=== PATIENT | male | born 2005 | race Caucasian/White ===

== ENCOUNTER 2024-07-26 19:59 | Emergency (ER) | payer MEDICAID, SELFPAY ==
[2024-07-26 20:22] VITALS: BP 127/70; PULSE 93; RESP 20; TEMP 36.9; O2SAT 98; BMI 36.9
--- NOTE | 2024-07-26 20:22 | ED_ITS ---
HPI - Skin/Abscess/Foreign Bdy General Chief complaint: General Medical Stated complaint: cyst on lower back Time Seen by Provider: 07/26/24 23:54 Source: patient Limitations: no limitations History of Present Illness ED Provider: Yolanda Kruse PA-C HPI narrative: 19-year-old male presents with infected pilonidal cyst times 3-4 days. Patient states he was seen at [facility], no intervention performed per his report, since the cyst has increased in size. Active purulent drainage from the site with a foul smell. Denies fever. Related Data Previous Rx's ?Medication ?Instructions ?Recorded doxycycline hyclate 100 mg capsule 100 mg PO BID #19 c aps 07/27/24 oxycodone 5 mg tablet 5 mg PO Q8H PRN pain #7 tabs 07/27/24 Allergies Allergy/AdvReac Type Severity Reaction Status Date / Time shellfish derived (shellfish) AdvReac Anaphylaxis Verified 07/26/24 20:25 Review of Systems Review of Systems: Yes all other systems are reviewed and are negative Constitutional: Constitutional: Denies fatigue and Denies fever(s) Endocrine: Endocrine: Denies fatigue [facility] Past Medical History Attestation statement: The following information was validated with the patient. Social History Social History Smoked in Last 30 Days: No Use of substances other than those prescribed or required for medical reasons: Yes Substance Use Type: Marijuana Substance Use Frequency: Occasionally Advance Directives: No Advance Directives Information Provided: Yes Do you have a plan to hurt others: No Plan Physical Exam Vital Signs: Vital Signs: Last Vital Signs Temp 98.2 F 07/27/24 03:14 Pulse 78 07/27/24 03:14 Resp 14 07/27/24 03:14 BP 100/44 L 07/27/24 03:14 Pulse Ox 97 07/27/24 03:14 O2 Del Method Room Air 07/27/24 03:14 BMI result Body Mass Index 36.9 Const: Other: Alert well-appearing Orientation/consciousness: patient oriented x3 Resp: Effort & Inspection: normal respiratory effort Cardio: Other: Normal peripheral perfusion Skin: Other: Large abscess superior to the buttock crease, it is indurated erythematous, no active drainage Neuro: General: patient oriented x3, gait normal, no focal motor deficits and CN's II-XI intact bilaterally Psych: Other: Cooperative Course Course Course Narrative: 07/26/242021 RUBINA Pratt This is a Rapid Medical Examination (RME) performed by Lyn Tabares PA-C in triage. Full HPI, ROS, assessment and treatment plan per primary provider in the Main ED. Hx: 19 yo M here for eval of cyst to lower back. hx similar requiring I&D. reports the area began draining foul smelling discharge today. PE/vitals: noted pilonidal to gluteal cleft draining foul smelling discharge Plan: I&D Medications Administered Discontinued Medications Generic Name Dose Route Start Last Admin Trade Name Freq PRN Reason Stop Dose Admin Doxycycline Monohydrate 100 mg 07/27/24 02:21 07/27/24 02:49 Doxycycline Monohydrate 100 Mg Capsule PO 07/27/24 02:22 100 mg ONCE ONE Administration Ketorolac Tromethamine 15 mg 07/27/24 00:45 07/27/24 00:54 Ketorolac Tromethamine 15 Mg/Ml Vial IM 07/27/24 00:46 15 mg ONCE ONE Administration Lidocaine/Epinephrine 20 ml 07/27/24 00:28 07/27/24 00:54 Lidocaine Hcl 1%/Epi 1:100,000 20 Ml Vial INFILTRATI 07/27/24 00:29 20 ml ONCE ONE Administration Midazolam HCl 2 mg 07/27/24 00:45 07/27/24 00:53 Midazolam Hcl 2 Mg/2 Ml Vial IM 07/27/24 00:46 2 mg ONCE ONE Administration Oxycodone HCl 5 mg 07/27/24 02:21 07/27/24 02:50 Oxycodone Hcl Immed Release 5 Mg Tablet PO 07/27/24 02:22 5 mg ONCE ONE Administration Medical Decision Making Medical Decision Making MDM Narrative: 19-year-old male presents with infected pilonidal cyst times 3-4 days. Patient states he was seen at [facility], no intervention performed per his report, since the cyst has increased in size. Active purulent drainage from the site with a foul smell. Denies fever. No chronic issues History: Per patient I have considered the following differential diagnoses: Pilonidal cyst, cellulitis, purulent cellulitis, abscess Plan: The abscess will require simple I and D we will premedicate and send with antibiotics Procedures Abscess I/D Site: other (Pilonidal) Local Anesthetic: lidocaine 1% and with epi Amount of anesthesia used (mL): 5 Technique: needle aspiration and incised with blade Amount of fluid expressed (mL): 50 Sent for culture/gram staining?: No Irrigation: Yes Packing used?: iodoform Discharge Plan Discharge Clinical Impression: Pilonidal abscess Patient Disposition: Home, Self-Care Instructions: Pilonidal Cyst (ED), Abscess (ED), Sitz Bath (DC) Additional Instructions: You had a pilonidal abscess that was drained. See home care instructions. The packing can be removed in 2 days. I would door glass installer his shower with a hot water running over the site, and quickly removed the packing. Take the doxycycline as directed. Take the oxycodone as needed. To note this medication can be constipating, use [id number] Colace which is a stool softener. Follow up with your primary care provider as needed. Prescriptions: New doxycycline hyclate 100 mg capsule 100 mg PO BID Qty: 19 0RF oxycodone 5 mg tablet 5 mg PO Q8H PRN (Reason: pain) Qty: 7 0RF Rx Instructions: Partial Fill upon patient request. Stand Alone Forms: Work/School Release Interventions: ED Discharge Assessment Last Done: 07/27/24 03:14 Discharge Date/Time: 07/27/24 03:15 Print Language: Zimbabwean
[2024-07-26 22:42] VITALS: BP 100/79; PULSE 88; RESP 16; TEMP 37.1; O2SAT 97
[2024-07-27] MEDS: Midazolam HCl 2 MG/2 ML VIAL IM (00:53)
[2024-07-27] MEDS: Ketorolac Tromethamine 15 MG/ML VIAL IM (00:54)
[2024-07-27] MEDS: Lidocaine HCl 1%/Epi 1:100,000 20 ML VIAL INFILTRATI (00:54)
[2024-07-27] MEDS: Doxycycline Monohydrate 100 MG CAPSULE PO (02:49)
[2024-07-27] MEDS: oxyCODONE HCl Immed Release 5 MG TABLET PO (02:50)
--- NOTE | 2024-07-27 03:04 | PC.NURSE ---
report given to MINERVA Gustafson
[2024-07-27 03:10] VITALS: BP 100/44; PULSE 78; RESP 14; TEMP 36.8; O2SAT 97
--- NOTE | 2024-07-27 03:13 | PC.NURSE ---
Reviewed discharge instructions with pt. pt verbalized understanding, no sign of distress upon discharge. Pt has a steady gait.
[2024-07-27 03:14] VITALS: BP 100/44; PULSE 78; RESP 14; TEMP 36.8; O2SAT 97
== END 2024-07-27 03:15 | disposition home or self-care (01) ==
PROVIDERS: Emergency Provider Emergency Medicine
DX: L05.01 Pilonidal cyst with abscess (principal)
CPT/HCPCS: 10060; 11770; 96372; 99284; J1885; J2004; J2250

== ENCOUNTER 2025-01-24 16:45 | Emergency (ER) | payer OTHER, SELFPAY ==
--- NOTE | ~2025-01-24 | XR_ITS ---
CLINICAL HISTORY: COughing. Pneumonia 1 view chest x-ray Comparison: None provided Findings: No consolidation or pleural effusion. Heart size is normal. No acute fracture. IMPRESSION: 1. No acute findings. This document has been electronically signed by: Bhumika Alfredo MD on 01/24/2025 18:50:40
--- NOTE | 2025-01-24 16:46 | ECG_ITS ---
Test Reason : CHEST PAIN Blood Pressure : */* mmHG Vent. Rate : 128 BPM Atrial Rate : 128 BPM P-R Int : 90 ms QRS Dur : 114 ms QT Int : 318 ms P-R-T Axes : 55 -32 114 degrees QTcB Int : 464 ms Sinus tachycardia with short NH Left axis deviation [id number] Abnormal ECG No previous ECGs available Referred By: Elliot Canales Electronically Signed By: GUILHERME LEWIS
--- NOTE | 2025-01-24 17:06 | MHC.EDTECH ---
This pct documented on wrong patient for ekg the time taken was 17:02
[2025-01-24 17:39] VITALS: BP 143/71; PULSE 130; RESP 22; TEMP 37.8; O2SAT 96; BMI 38.8
--- NOTE | 2025-01-24 17:47 | ED_ITS ---
HPI - General Adult General Chief complaint: Nausea/Vomiting/Diarrhea Stated complaint: CP , HEADACHE , V/D/N Time Seen by Provider: 01/24/25 20:15 Source: patient Limitations: no limitations History of Present Illness ED Provider: Yolanda Kruse PA-C HPI narrative: 19-year-old male with a history of asthma presents with cough and cold symptoms x3 weeks. Associated nausea, chest pain, sore throat, nasal congestion with the headaches. Denies fever. Related Data Previous Rx's ?Medication ?Instructions ?Recorded doxycycline hyclate 100 mg capsule 100 mg PO BID #19 c aps 07/27/24 oxycodone 5 mg tablet 5 mg PO Q8H PRN pain #7 tabs 07/27/24 albuterol sulfate 90 mcg/actuation 2 puff inhalation Q 4-6H PRN 01/24/25 aerosol inhaler (Ventolin HFA) shortness of breath or wheezing #8.5 grams azithromycin 250 mg tablet 250 mg PO DAILY 4 days #4 t abs 01/24/25 prednisone 20 mg tablet 40 mg (2 x 20 mg) PO DAILY # 8 tabs 01/24/25 Allergies Allergy/AdvReac Type Severity Reaction Status Date / Time shellfish derived (shellfish) AdvReac Anaphylaxis Verified 01/24/25 17:44 Review of Systems 2 Review of Systems: Yes all other systems are reviewed and are negative Constitutional: Constitutional: Reports fatigue, Denies fever(s) and Reports headache(s) ENT: Reports headache(s), Reports nasal congestion and Reports sore throat Cardiovascular: Cardiovascular: Denies chest pain and Denies dyspnea Respiratory: Respiratory: Reports cough, Denies dyspnea and Reports wheezing Neurologic: Reports headache(s) Endocrine: Endocrine: Reports fatigue Allergic/Immunologic: Allergic/Immunologic: Reports wheezing PMFSH Past Medical History Attestation statement: The following information was validated with the patient. Social History Social History Substance Use Type: Marijuana Advance Directives: No Advance Directives Information Provided: Yes Do you have a plan to hurt others: No Plan Physical Exam ED Vital Signs: Vital Signs - 24 hr 01/24/25 17:39 01/24/25 20:13 01/24/25 20:43 Temperature 100.1 F 98.3 F Pulse Rate 130 H 110 H 76 Respiratory Rate 22 H 20 19 Blood Pressure 143/71 H 128/77 Pulse Oximetry 96 95 Oxygen Delivery Method Room Air Room Air 01/24/25 21:49 Temperature 0 F L Pulse Rate 76 Respiratory Rate 19 Blood Pressure 00/00 L Pulse Oximetry 98 Oxygen Delivery Method BMI result Body Mass Index 38.8 Const Other: Alert Orientation/consciousness: patient oriented x3 HENMT Other: Oropharynx is erythematous without exudate, uvula midline, tonsils mildly edematous, no sublingual fluctuance no swelling inferior to the jawline Resp Other: Expiratory wheezes noted posterior kay Cardio Other: Normal peripheral perfusion Skin Other: Warm dry no rash Neuro General: patient oriented x3, gait normal, no focal motor deficits and CN's II- XI intact bilaterally Psych Other: Cooperative Course Course Course Narrative: RME: 19 year male presents to ED for headache, chest pain, nausea, vomiting, coughing diarrhea for the past 3 weeks. Patient is tachycardic. Labs ordered Medications Administered Discontinued Medications Generic Name Dose Route Start Last Admin Trade Name Freq PRN Reason Stop Dose Admin Azithromycin 500 mg 01/24/25 21:36 01/24/25 21:44 Azithromycin 500 Mg Tablet PO 01/24/25 21:37 500 mg ONCE ONE Administration Albuterol Sulfate 5 mg/ 0 mg 01/24/25 20:35 01/24/25 20:43 Albuterol/Ipratropium 3 ml INHALE 01/24/25 20:36 7.5 each ONCE ONE Administration Ibuprofen 800 mg 01/24/25 17:46 01/24/25 17:48 Ibuprofen 800 Mg Tablet PO 01/24/25 17:47 800 mg ONCE ONE Administration Ketorolac Tromethamine 15 mg 01/24/25 21:23 01/24/25 21:35 Ketorolac Tromethamine 15 Mg/Ml Vial IM 01/24/25 21:24 15 mg ONCE ONE Administration Ondansetron HCl 4 mg 01/24/25 17:48 01/24/25 17:50 Ondansetron Odt 4 Mg Tab.Rapdis TRANSLINGU 01/24/25 17:49 4 mg ONCE ONE Administration Prednisone 40 mg 01/24/25 20:22 01/24/25 20:37 Prednisone 20 Mg Tablet PO 01/24/25 20:23 40 mg ONCE ONE Administration Medical Decision Making Medical Decision Making [facility] Narrative: 19-year-old male with a history of asthma presents with cough and cold symptoms x3 weeks. Associated nausea, chest pain, sore throat, nasal congestion with the headaches. Denies fever. Problem: Asthma History: Per patient I have considered the following differential diagnoses: Asthma exacerbation, bronchitis, pneumonia, viral syndrome , strep pharyngitis, SECURITIES COUNSELOR, RPA Plan: Screening labs including strep screen ordered from triage, and a chest x- ray. The patient is having viral syndrome, trachea in asthma exacerbation. Ordering an updraft, giving steroid. To note there was no exam findings consistent with a RPA or SECURITIES COUNSELOR. The patient smokes marijuana, we will also send with a Z-Toro. I have independently reviewed the following tests: Labs: No leukocytosis, not anemic, no electrolyte abnormality, troponin less than 2.7, viral panel negative, strep screen negative EKG: Sinus tachycardia, rate of 128, concerned for LVH R in aVL phenomenon, no active ischemic changes, QTC 464 Chest x-ray:indings: No consolidation or pleural effusion. Heart size is normal. No acute fracture. IMPRESSION: 1. No acute findings. Differential Diagnosis Differential Diagnoses: The differential diagnosis associated with the presentation includes See [facility] Admission/Observation Consideration of admission/observation: Escalation of care including admission/observation considered Not applicable Lab Data [facility] Lab Attestation statement: I reviewed the patient's lab results. 01/24/25 17:58 01/24/25 17:58 Labs: Lab Results 01/24/25 01/24/25 Range/Units 17:57 17:58 WBC 7.3 (4.8-10.8) X10*3/uL RBC 5.48 (4.60-5.80) X10*6/uL Hgb 16.5 (14.0-18.0) g/dl Hct 45.9 (42.0-52.0) % MCV 83.8 (80.0-98.0) fL MCH 30.1 (27.0-33.0) pg MCHC 35.9 (31.0-36.0) g/dl RDW 12.7 (11.0-16.0) % Plt Count 216 (160-400) X10*3/uL MPV 10.3 (9.4-12.4) fL Immature Gran % (Auto) 0.3 (0.0-0.4) % Neut % (Auto) 73.7 H (45-73) % Lymph % (Auto) 14.1 L (20-40) % [place] % (Auto) 10.9 (2-11) % Eos % (Auto) 0.3 (0-4) % Baso % (Auto) 0.7 (0-2) % Lymph # (Auto) 1.0 L (1.2-4.9) X10*3/uL [place] # (Auto) 0.8 (0.1-1.2) X10*3/uL Eos # (Auto) 0.0 (0.0-0.4) X10*3/uL Baso # (Auto) 0.1 (0.0-0.2) X10*3/uL Abs Immat Gran (auto) 0.02 (0.00-0.03) X10*3/uL Absolute Neuts (auto) 5.4 (2.0-8.3) x10*3/uL Absolute Nucleated RBC 0.000 (0.0-0.012) X10*3/uL Nucleated RBC % (auto) 0.0 (0.0-0.2) /100WBC Sodium 137 (135-145) mmol/L Potassium 3.8 (3.3-5.1) mmol/L Chloride 104 (96-108) mmol/L Carbon Dioxide 23 (22-29) mmol/L Anion Gap 14 (12-20) BUN 13 (9-16) mg/dL Creatinine 0.88 (0.5-1.4) mg/dL Estim Creat Clear Calc 197.1 Estimated GFR > 60 Random Glucose 108 (60-115) mg/dL Calcium 9.4 (8.4-10.2) mg/dL Total Bilirubin 0.8 (0.0-1.0) mg/dL AST 26 (5-37) U/L ALT 49 H (0-40) U/L Alkaline Phosphatase 96 (39-117) U/L Troponin I High Sens < 2.7 (<3.5-35.0) ng/L Total Protein 8.2 H (6.5-8.0) g/dL Albumin 4.6 (3.5-5.0) g/dL Lipase 11 (8-78) U/L Influenza Type A (PCR) NEGATIVE (Negative) Influenza Type B (PCR) NEGATIVE (Negative) RSV RNA Qual (PCR) NEGATIVE (Negative) SARS-CoV-2 RNA (RT-PCR) NEGATIVE (Negative) S. pyogenes GrpA DANNI Negative (Negative) Independent Interpretation I performed an independent interpretation of an: EKG Radiology Impression Discussion of test interpretation with radiology: I have reviewed the radiologist's reading. Discharge Plan Discharge Clinical Impression: Bronchitis Patient Disposition: Home, Self-Care Instructions: Acute Bronchitis (ED) Additional Instructions: You are being treated for bronchitis. All of your screening labs including a cardiac enzymes were normal, the chest x-ray was clear you do not have pneumonia. Use your inhaler as directed. Take the steroid as directed. Take the azithromycin as directed. You should try to stop smoking, this will exacerbate your bronchitis. Follow up with your primary care provider as needed. Prescriptions: New azithromycin 250 mg tablet 250 mg PO DAILY 4 Days Qty: 4 0RF Rx Instructions: start on day 2 of therapy prednisone 20 mg tablet 40 mg PO DAILY Qty: 8 0RF albuterol sulfate [Ventolin HFA] 90 mcg/actuation HFA aerosol inhaler 2 puff inhalation Q4-6H PRN (Reason: shortness of breath or wheezing) Qty: 8.5 0RF No Action doxycycline hyclate 100 mg capsule 100 mg PO BID Qty: 19 0RF oxycodone 5 mg tablet 5 mg PO Q8H PRN (Reason: pain) Qty: 7 0RF Rx Instructions: Partial Fill upon patient request. Interventions: ED Discharge Assessment Last Done: 01/24/25 21:49 Discharge Date/Time: 01/24/25 21:50 Print Language: Israeli
[2025-01-24 18:02] LABS: MANUAL DIFF FLAG NO
[2025-01-24 18:04] LABS: Hematocrit 45.9 % (42.0-52.0); Hemoglobin 16.5 g/dl (14.0-18.0); Imm Gran Abs Auto 0.02 X10*3/uL (0.00-0.03); Imm Gran Pct Auto 0.3 % (0.0-0.4); Lymphocytes Absolute Auto 1.0 X10*3/uL (1.2-4.9); Mean Corpuscular HGB Conc 35.9 g/dl (31.0-36.0); Mean Corpuscular Hemoglobin 30.1 pg (27.0-33.0); Mean Corpuscular Volume 83.8 fL (80.0-98.0); NRBC Abs Auto 0.000 X10*3/uL (0.0-0.012); NRBC Pct Auto 0.0 /100WBC (0.0-0.2); Platelet Count 216 X10*3/uL (160-400); Red Blood Count 5.48 X10*6/uL (4.60-5.80); White Blood Count 7.3 X10*3/uL (4.8-10.8)
[2025-01-24 18:11] LABS: IDNOW Serial# 55D5AD1C; Strep A Nucleic Acid Negative (Negative)
[2025-01-24 18:23] LABS: Alanine Aminotransferase 49 U/L (0-40); Albumin Level 4.6 g/dL (3.5-5.0); Alkaline Phosphatase 96 U/L (39-117); Anion Gap 14 (12-20); Aspartate Amino Transferase 26 U/L (5-37); Blood Urea Nitrogen 13 mg/dL (9-16); Calcium 9.4 mg/dL (8.4-10.2); Carbon Dioxide 23 mmol/L (22-29); Chloride 104 mmol/L (96-108); Creatinine Clr Calc Pharmacy 197.1; Estimated Glomerular Filt Rate > 60; Potassium 3.8 mmol/L (3.3-5.1); Sodium 137 mmol/L (135-145); Total Protein 8.2 g/dL (6.5-8.0)
[2025-01-24 18:29] LABS: Troponin-I High Sensitivity < 2.7 ng/L (<3.5-35.0)
[2025-01-24 18:29] LABS: Lipase 11 U/L (8-78)
[2025-01-24 18:48] LABS: Resp Syncy Virus RNA Qual PCR NEGATIVE (Negative); SARS COV2 PCR INHOUSE NEGATIVE (Negative)
[2025-01-24 20:13] VITALS: BP 128/77; PULSE 110; RESP 20; TEMP 36.8; O2SAT 95
[2025-01-24 20:43] VITALS: PULSE 76; RESP 19; O2SAT 97
[2025-01-24] MEDS: Albuterol Sulfate 5 MG, Albuterol/Iprat 2.5/0.5MG 3 ML 3 ML INHALE (20:43)
[2025-01-24 21:49] VITALS: BP 00/00; PULSE 76; RESP 19; TEMP -17.7; TEMP 0; O2SAT 98
== END 2025-01-24 21:50 | disposition home or self-care (01) ==
PROVIDERS: Physician Assistant; Emergency Provider Emergency Medicine
DX: J40 Bronchitis, not specified as acute or chronic (principal); R07.9 Chest pain, unspecified; R51.9 Headache, unspecified; R11.2 Nausea with vomiting, unspecified; R19.7 Diarrhea, unspecified; Z03.818 Encounter for observation for suspected exposure to other biological agents ruled out; R00.0 Tachycardia, unspecified; R05.9 Cough, unspecified
CPT/HCPCS: 36415; 71045; 80053; 83690; 84484; 85025; 87637; 87651; 93005; 94640; 96372; 99284; J1885

== ENCOUNTER → 2025-01-24 16:46 | Outpatient (BNV) | payer OTHER, SELFPAY | PROVIDERS: Emergency Provider Emergency Medicine; Visit Provider Internal Medicine | DX: R00.0 Tachycardia, unspecified (principal); I45.6 Pre-excitation syndrome | CPT/HCPCS: 93010 ==

== ENCOUNTER → 2025-01-24 17:46 | Outpatient (BNV) | payer OTHER, SELFPAY | PROVIDERS: Visit Provider Student in an Organized Health Care Education/Training Program | DX: J18.9 Pneumonia, unspecified organism (principal) | CPT/HCPCS: 71045 ==